=== PATIENT | male | born 1955 | race Caucasian/White ===

== ENCOUNTER → 2023-11-15 | Outpatient (CLI) | payer OTHER ==
[2023-11-15 21:16] LABS: HCT 44.8 % (39.6-50.0); HGB 14.5 g/dL (13.0-17.0); MCHC 32.4 g/dL (32.0-37.0); MCV 95.7 FL (80.0-97.0); Mean Platelet Volume 10.4 FL (9.5-12.2); NRBC Per 100 WBC 0 X 10*3/uL (0.00-0.01); Platelet Count 356 X 10*3/uL (140-440); RBC 4.68 X 10*6/uL (4.40-5.60); RDW 13.7 % (11.5-14.5); WBC 11.49 X 10*3/uL (4.50-10.00)
[2023-11-15 21:40] LABS: Acanthocytes 2+; Basophils # (A) 0.12 X 10*3/uL (0.00-0.10); Eosinophils # (A) 0.61 X 10*3/uL (0.04-0.35); Eosinophils % (A) 5.3 %; Lymphocytes # (A) 2.11 X 10*3/uL (0.90-5.00); Lymphocytes % (A) 18.4 %; Monocytes % (A) 14.8 %; Neutrophils # (A) 6.86 X 10*3/uL (1.80-7.70); Neutrophils % (A) 59.7 %
== END | disposition home or self-care (01) ==
LOC: LABWHC1 15:34
PROVIDERS: ATTEND Surgery
DX: Z01.818 Encounter for other preprocedural examination
CPT/HCPCS: 85025; 93005

== ENCOUNTER 2023-11-22 07:09 | Day surgery (SDC) | payer OTHER ==
[2023-11-15 16:28] VITALS: BMI 32.9
[~2023-11-22 07:09] MED LIST: LIDOCAINE 1% (10MG/ML) FOR IV START INTRADERMA PRN; fentaNYL (PF) 50 MCG/ML 2 ML AMP IVP PRN
[2023-11-22] MEDS: IV FLUID CONTINUATION 1,000 ML IV ONE ×2 (07:52→10:31)
[2023-11-22] MEDS: LACTATED RINGERS 1,000 ML IV SCH (07:54)
[2023-11-22] MEDS: DEXAMETHASONE SOD PHOSPHATE 4 MG/ML 1 ML VIAL IV ONE (08:13)
[2023-11-22] MEDS: ONDANSETRON 4 MG/2 ML VIAL IVP ONE (08:13)
[2023-11-22] MEDS: ACETAMINOPHEN TAB 500 MG TAB PO PRN (08:13)
[2023-11-22] MEDS: LIDOCAINE 1%-EPI 1:100,000 20 ML VIAL SQ ONE ×3 (08:14→09:23)
[2023-11-22] MEDS: MIDAZOLAM 2 MG/2 ML VIAL IV PRN (08:24)
[2023-11-22] MEDS: HEPARIN SODIUM,PORCINE 5,000 UNIT/ML 1 ML VIAL SQ PRN (08:37)
--- NOTE | 2023-11-22 08:37 | P.ANPRN ---
Procedure Note - Anesthesia - Nerve Block Performed Bilateral Erector Spinae Single Time Out Performed: Yes Date of Procedure: 11/22/23 Procedure Start Time: Procedure Stop Time: Location of Patient: PreOp Indication: Acute Post-Operative Pain, Requested by Surgeon Sedation Type: Sedate with meaningful contact maintained Preparation: Sterile Prep, Sterile Dressing Position: Prone Catheter: None Needle Types: Facet Needle Gauge: 20 Ultrasound used to visualize needle placement: Yes Ultrasound used to observe medication spread: Yes Injectate: Other (see comment) (Ropivacaine 0.25% 30 ml + decadron 2 mg per side) Blood Aspirated: No Pain Paresthesia on Injection Noted: No Resistance on Injection: Normal Image Stored and Saved: Yes Events: Uneventful and Well Tolerated
[2023-11-22] MEDS ORDERED: ROCURONIUM 10 MG/ML (5 ML VIAL) IV ONE (09:00)
[2023-11-22] MEDS ORDERED: fentaNYL (PF) 50 MCG/ML 2 ML AMP ONE (09:00)
[2023-11-22] MEDS ORDERED: SUCCINYLCHOLINE CHLORIDE 200 MG/10 ML VIAL IV ONE (09:00)
[2023-11-22] MEDS ORDERED: ROPIVACAINE 5 MG/ML 30 ML VIAL ONE (09:00)
[2023-11-22] MEDS ORDERED: GLYCOPYRROLATE 0.2 MG/ML 2 ML VIAL ONE (09:00)
[2023-11-22] MEDS ORDERED: PHENYLEPHRINE-0.9% NACL SYG 1,000 MCG/10 ML SYRINGE ONE (09:00)
[2023-11-22] MEDS ORDERED: LIDOCAINE 1% INJ 10MG/ML (20 ML MDV) ONE (09:00)
[2023-11-22] MEDS ORDERED: KETAMINE HCL IN 0.9 % NACL 50 MG/5 ML SYRINGE ONE (09:00)
[2023-11-22] MEDS ORDERED: PROPOFOL 10 MG/ML 20 ML VIAL IV ONE (09:00)
[2023-11-22] MEDS ORDERED: DEXAMETHASONE SOD PHOSPHATE 4 MG/ML 1 ML VIAL ONE (09:00)
[2023-11-22] MEDS ORDERED: NEOSTIGMINE 1 MG/ML 10 ML VIAL ONE (09:00)
--- NOTE | 2023-11-22 09:54 | P.OP ---
Date of Procedure: 11/22/23 Preoperative Diagnosis: umbilical hernia Postoperative Diagnosis: D incarcerated umbilical hernia Procedure(s) Performed: Laparoscopic robotic assisted repair of umbilical hernia Transversus abdominis plane block Anesthesia: MARCY Surgeon: Nils Caldera Estimated Blood Loss (ml): 5 Pathology: none sent Condition: stable Disposition: PACU Description of Procedure: The patient was placed on the operating table in the supine position. He received general anesthesia. His abdomen was prepped and draped usual fashion. Using a 5 mm optical trocar under direct visualization the peritoneal cavity was entered in the left upper quadrant. The abdomen was then insufflated. The l aparoscope was placed back into the perineal cavity. Next a 8 mm robotic trocar was placed in the left lower quadrant and a 12 mm robotic trocar was placed in the left lateral position. The original 5 mm trocar was exchanged for a 8 mm robotic trocar. The patient's placed in the left side up position. And the patient was undocked the robot. The umbilical hernia was visualized. Incarcerated omentum was reduced. Using hook cautery the peritoneum over the umbilical hernia was excised. The fascial opening was repaired using 0V LOC suture. Next a piece of 11 cm round ventral light ST mesh was placed into the. Cavity and secured with 2 OV lock suture. The patient was undocked the robot. The needles were retrieved. A four-quadrant transversus abdominis plane block was performed 1% local Xylocaine. The fascia of the 12 mm trocar site was closed with 0 Ethibond suture. Skin was closed interrupted 3-0 Monocryl suture. Dermabond dressings was applied. Patient top procedure well and was sent to recovery room stable condition.
[2023-11-22 10:05] VITALS: RESP 16; TEMP 98.3
[2023-11-22] MEDS: HYDROmorphone 0.5 MG/0.5 ML SYRINGE IVP PRN (10:26)
[2023-11-22] MEDS: SODIUM CHLORIDE 0.9% 1,000 ML IV SCH (10:33)
[2023-11-22] MEDS: MEPERIDINE 50 MG/ML SYRINGE IVP STA (10:52)
[2023-11-22 10:57] LABS: Glucose,Whole Blood 199 mg/dL (70-110)
[2023-11-22] MEDS: KETOROLAC 15 MG/ML 1 ML VIAL IVP STA (12:04)
[2023-11-22 13:16] VITALS: BP 118/77; PULSE 98
[2023-11-25 11:46] LABS: Glucose,Whole Blood 149 mg/dL (70-110)
== END 2023-11-22 13:27 | disposition home or self-care (01) ==
LOC: OR 07:09
PROVIDERS: ATTEND Surgery
DX: K42.9 Umbilical hernia without obstruction or gangrene
CPT/HCPCS: 49594; 64999; S2900